=== PATIENT | female | born 1995 | race American Indian/Alaskan Native ===

== ENCOUNTER 2022-09-17 19:27 | Emergency (ER) | payer MEDICAID ==
[2022-09-17] MEDS ORDERED: Ketorolac 30 MG/ML SDV IVPUSH ONE (19:28)
[2022-09-17] MEDS ORDERED: Sodium Chloride 0.9% 1,000 ML IV SCH (19:30)
[2022-09-17] MEDS ORDERED: fentaNYL 100 MCG/2 ML SDV IVPUSH ONE (20:08)
== END 2022-09-17 21:15 | disposition home or self-care (01) ==
LOC: JP.ED 19:27
DX: K04.7 Periapical abscess without sinus (principal)
CPT/HCPCS: 36415; 80048; 83605; 84145; 85025; 96361; 96374; 96375; 99282; 99285; J1885; J3010; J7030